=== PATIENT | female | born 1990 | race Caucasian/White ===

== ENCOUNTER → 2017-07-25 | Outpatient (CLI) | payer SELFPAY ==
[~2017-07-25] VITALS: Ht 170.2 cm; Wt 68.0 kg
[~2017-07-25] MED LIST: NS IV 1000 ML 1,000 ML IV SCH; NS IV 1000 ML 1,000 ML ONE
[2017-07-25 11:50] VITALS: BP 119/81
[2017-07-25 12:56] LABS: MEAN PLATELET VOLUME 10.5 FL (7.4-10.4); RED BLOOD COUNT 4.7 10^6/uL (4.35-5.85); RED CELL DISTRIBUTION WIDTH 11.8 % (10.0-14.5); WHITE BLOOD COUNT 7.4 10^3/uL (4.3-11.0)
[2017-07-25 13:22] LABS: ALANINE AMINOTRANSFERASE 13 U/L (0-55); ALBUMIN 4.1 GM/DL (3.2-4.5); ANION GAP 15 MMOL/L (5-14); ASPARTATE AMINO TRANSFERASE 14 U/L (5-34); BILIRUBIN,TOTAL 0.4 MG/DL (0.1-1.0); BLOOD UREA NITROGEN 13 MG/DL (7-18); BUN/CREATININE RATIO 17; CALCIUM 9.2 MG/DL (8.5-10.1); CARBON DIOXIDE 16 MMOL/L (21-32); CHLORIDE 111 MMOL/L (98-107); CREATININE SERUM 0.75 MG/DL (0.60-1.30); GFR ESTIMATED > 60; GLUCOSE 87 MG/DL (70-105); POTASSIUM 3.8 MMOL/L (3.6-5.0); SODIUM 142 MMOL/L (135-145); TOTAL PROTEIN 7.8 GM/DL (6.4-8.2)
[2017-07-25 13:42] LABS: THYROID STIMULATING HORMONE 0.17 UIU/ML (0.35-4.94)
== END ==
LOC: SDC 11:44
PROVIDERS: ATTEND Nurse Practitioner Family
DX: J02.9 Acute pharyngitis, unspecified (principal); E86.0 Dehydration; R53.81 Other malaise; R53.83 Other fatigue
CPT/HCPCS: 36415; 80053; 84443; 85027; 96365

== ENCOUNTER → 2019-09-08 | Outpatient (CLI) | payer BC ==
--- NOTE | 2019-09-08 18:00 | Diagnostic Imaging Report ---
INDICATION: Left upper quadrant pain for 10 days. TECHNIQUE: Supine views of the abdomen were obtained. FINDINGS: The diaphragm was not visualized on this study. The bowel gas pattern is within normal limits. No mass or calculus is evident. There is no bony abnormality. IMPRESSION: No abnormality is seen. Dictated by: Dictated on workstation # [id number]
== END ==
LOC: RAD FS 17:36
PROVIDERS: ATTEND Nurse Practitioner Family
DX: R10.12 Left upper quadrant pain (principal)
CPT/HCPCS: 74018

== ENCOUNTER → 2022-04-17 | Outpatient (CLI) | payer SELFPAY ==
--- NOTE | 2022-04-17 17:33 | Diagnostic Imaging Report ---
INDICATION: Right knee pain, question work related TECHNIQUE: 3 views of the right knee CORRELATION STUDY: None FINDINGS: The joint spaces are maintained. The articular surfaces are smooth and preserved. There is no acute bony abnormality. Soft tissues are unremarkable. IMPRESSION: 1. Unremarkable examination of the right knee. Dictated by: Dictated on workstation # [id number]
== END ==
LOC: RAD 16:52
PROVIDERS: ATTEND Family Medicine
DX: M25.561 Pain in right knee (principal)
CPT/HCPCS: 73562